=== PATIENT | female | born 1990 | race Caucasian/White ===

== ENCOUNTER 2016-08-31 16:17 | Emergency (ER) | payer SELFPAY ==
[~2016-08-31] VITALS: Ht 177.8 cm; Wt 61.3 kg
[2016-08-31 16:19] VITALS: BP 151/92; PULSE 96; RESP 16; TEMP 98.1; O2SAT 98
== END 2016-08-31 18:15 | disposition left against medical advice (07) ==
LOC: NED 16:17
DX: N89.8 Other specified noninflammatory disorders of vagina (principal); Z53.21 Procedure and treatment not carried out due to patient leaving prior to being seen by health care provider
CPT/HCPCS: 99281

== ENCOUNTER 2016-09-01 10:56 | Emergency (ER) | payer OTHER ==
[~2016-09-01] VITALS: Ht 177.8 cm; Wt 62.0 kg
[2016-09-01 11:06] VITALS: BP 105/60; PULSE 76; RESP 16; TEMP 98.6; O2SAT 96
--- NOTE | 2016-09-01 12:11 | PD ---
HPI Chief Complaint: Flight Operation Coordinator Problem/Complaint Time Seen by Provider: 11:54 Travel History International Travel<30 days: No Contact w/Intl Traveler<30days: No Traveled to known affect area: No History of Present Illness HPI This 26-year-old female is complaining of vaginal discharge. She's been having for a few days. It's been a fairly heavy whitish discharge. She says that her boyfriend with whom she is sexually active was recently diagnosed with gonorrhea. Her periods are regular. She does not think she is . Her last period was 3 weeks ago and has been regular [facility] Past Medical History Depression: Yes Cancer: No Cardiovascular Problems: No Diabetes: No Diminished Hearing: No Glaucoma: No Genitourinary: Yes (Kidney stones/infections ) Headaches: Yes Hepatitis: No Hiatal Hernia: No Hypertension: No Kidney Stones: Yes Musculoskeletal: Yes (Back pain ) Psychiatric: No Reproductive: Yes (GONORRHEA IN PAST) Respiratory: No Immunizations Current: Yes Seizures: No Thyroid Disease: No Ulcer: No ?: Not LMP: 3 WEEKS : 2 Para: 0 Miscarriage: 2 Past Surgical History Pacemaker: No Other Surgery: No Family History Family Hypercholesterolemia: Yes (Grandfather) Social History Alcohol Use: No Tobacco Use: Yes (08/28 PPD) Substance Use: No (DENIES) Allergies-Medications (Allergen,Severity, Reaction): Coded Allergies: Banana (Verified Adverse Reaction, Intermediate, Nausea, 09/01/16) Reported Meds & Prescriptions Reported Meds & Active Scripts Active No Active Prescriptions or Reported Medications Review of Systems General / Constitutional: No: Fever, Chills Eyes: No: Diploplia Cardiovascular: No: Chest Pain or Discomfort, Palpitations Respiratory: No: Cough, Shortness of Breath Gastrointestinal: No: Vomiting, Diarrhea Genitourinary: Positive: Discharge, No: Frequency Musculoskeletal: No: Myalgias, Arthralgias Skin: No Rash Neurologic: No: Weakness Psychiatric: No: Anxiety Physical Exam Narrative GENERAL: Well-developed female SKIN: Warm and dry. HEAD: Atraumatic. Normocephalic. EYES: Pupils equal and round. No scleral icterus. No injection or drainage. ENT: No nasal bleeding or discharge. Mucous membranes pink and moist. NECK: Trachea midline. No JVD. GASTROINTESTINAL: Abdomen soft, non-tender, nondistended. Hepatic and splenic margins not palpable. : There is heavy white discharge. Os is closed. There is no pain with the cervix MUSCULOSKELETAL: No obvious deformities. No clubbing. No cyanosis. No edema. NEUROLOGICAL: Awake and alert. No obvious cranial nerve deficits. Motor grossly within normal limits. Normal speech. PSYCHIATRIC: Appropriate mood and affect; insight and judgment normal. Data Data Last Documented VS Vital Signs Date Time Temp Pulse Resp B/P Pulse Ox O2 Delivery O2 Flow Rate FiO2 09/01/16 11:06 98.6 76 16 105/60 96 Orders Gc And Chlamydia Pcr (09/01/16 12:06) Wet Prep Profile (09/01/16 12:06) Azithromycin Powd Pack (Zithromax Powd P (09/01/16 12:15) Ceftriaxone Inj (Rocephin Inj) (09/01/16 12:15) Lidocaine 1% Inj (50 Ml) (Xylocaine 1% I (09/01/16 12:15) Labs Laboratory Tests Test 09/01/16 12:08 Clue Cells (Wet Prep) NONE SEEN Vaginal Trichomonas (Wet Prep) NONE SEEN Vaginal Yeast (Wet Prep) NONE SEEN MDM Medical Decision Making Medical Screen Exam Complete: Yes Emergency Medical Condition: Yes Medical Record Reviewed: Yes Differential Diagnosis Differential includes gonorrhea, vaginitis Narrative Course Patient does have exposure to gonorrhea and will be treated for gonorrhea. Wet prep is negative Diagnosis Primary Impression: Exposure to gonorrhea Scripts No Active Prescriptions or Reported Meds Disposition: 01 DISCHARGE HOME Condition: Stable Kevin Rubi MD Sep 01, 2016 12:11
[2016-09-01] MEDS ORDERED: LIDOCAINE HCL 1% 50 ML VIAL IM ONE (12:15)
[2016-09-01] MEDS ORDERED: AZITHROMYCIN PWD FOR SUSP 1 GM PACKET PO ONE (12:15)
[2016-09-01] MEDS ORDERED: cefTRIAXone 250 MG VIAL IM ONE (12:15)
[2016-09-01 12:40] VITALS: BP 99/64; PULSE 61; RESP 16; O2SAT 97
[2016-09-01 17:16] LABS: CHLAMYDIA PCR NOT DETECTED (NOT DETECT); NEISSERIA PCR NOT DETECTED (NOT DETECT)
== END 2016-09-01 12:55 | disposition home or self-care (01) ==
LOC: PHED 10:56
DX: Z20.2 Contact with and (suspected) exposure to infections with a predominantly sexual mode of transmission (principal); Z87.442 Personal history of urinary calculi; F17.210 Nicotine dependence, cigarettes, uncomplicated
CPT/HCPCS: 87210; 87491; 87591; 96372; 99283; J0696